=== PATIENT | female | born 1970 | race Two or more races ===

== ENCOUNTER 2017-10-02 15:53 | Emergency (ER) | payer BC ==
[~2017-10-02] VITALS: Ht 160 cm; Wt 83.9 kg
[2017-10-02] MEDS ORDERED: LEXAPRO10 MG ORAL (16:02)
[2017-10-02] MEDS ORDERED: GILENYA0.5 MG ORAL (16:02)
[2017-10-02 16:05] VITALS: BP 138/78
[2017-10-02] MEDS ORDERED: Acetaminophen 500mg (ES) tab ORAL ONE (16:30)
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
--- NOTE | 2017-10-02 16:54 | Diagnostic Imaging Report ---
Indication: Headache Technique: Contiguous 5 mm thick transaxial imaging of the head obtained in a Siem[employer] Sensation [address] scanner. Soft tissue and bone windows generated. Automatic Exposure Control was utilized. Total Dose length Product (DLP): 1498.[address] Dose Index Volume (CTDIvol): 70.38 mGy Comparison: none Findings: The size and configuration of the cortical sulci, basal cisterns, and ventricles are within normal limits for age. There is no mass effect, midline shift, or edema identified. There is no evidence of acute hemorrhage or abnormal intra-axial or extra-axial fluid collections. The bones and soft tissues are unremarkable. Impression: No mass effect, edema or acute bleed. The CT scanner at [facility] is accredited by the [place] [employer] and the scans are performed using dose optimization techniques as appropriate to a performed exam including Automatic Exposure control.
[2017-10-02] MEDS ORDERED: TYLENOL325 MG ORAL (16:58)
[2017-10-02 17:06] VITALS: BP 138/78
== END 2017-10-02 17:15 | disposition home or self-care (01) ==
LOC: EMR 16:34
DX: S09.8XXA Other specified injuries of head, initial encounter (principal); V49.50XA Passenger injured in collision with unspecified motor vehicles in traffic accident, initial encounter; Y92.410 Unspecified street and highway as the place of occurrence of the external cause; R51 Headache
CPT/HCPCS: 70450; 99283